=== PATIENT | female | born 1960 | race Caucasian/White ===

== ENCOUNTER 2017-04-10 08:49 | Emergency (ER) | payer SELFPAY ==
[~2017-04-10] VITALS: Ht 165.1 cm; Wt 70.0 kg
[~2017-04-10 08:49] MED LIST: ALBU6.7H INH; CARA1SUS3 PO; DOXY100T PO; GLUCTAB OR; LANTUSP SQ; METR-1 PO; PREV30CA36 PO
[2017-04-10 08:51] VITALS: BP 200/93; PULSE 75; RESP 15; TEMP 98.2; O2SAT 98
[2017-04-10] MEDS ORDERED: METF500T PO (10:02)
[2017-04-10] MEDS ORDERED: ALBU6.7H INH (10:03)
[2017-04-10 10:04] VITALS: BP 176/90; PULSE 73; RESP 22; O2SAT 99
--- NOTE | 2017-04-10 10:21 | PD ---
HPI Chief Complaint: Chest Pain Time Seen by Provider: 10:03 Travel History International Travel<30 days: No Contact w/Intl Traveler<30days: No Traveled to known affect area: No History of Present Illness HPI 57 years old female complains of chest pain and shortness of breath. Patient states that she has persistent shortness of breath for the past week. Patient states that she started having left arm pain aching pain for the past 3 days. Patient states that she had a few seconds of left-sided sharp shooting chest pain yesterday. Patient denies any chest pain today. Patient denies any coughing congestion fever chills. Patient states that the chest pain and shortness of breath is not associated with exertion. Patient states that she had unsteady gait yesterday but not today. Patient states that she has abdominal discomfort since yesterday also . Patient denies any nausea vomiting diarrhea. Patient has history of diabetes and hyperlipidemia. Patient denies history hypertension. Patient is a smoker. Patient has family history of heart disease. Patient states that she took aspirin yesterday and the day before that however not today. PFSH Past Medical History Asthma: Yes Anxiety: Yes Depression: Yes Cancer: No Cardiovascular Problems: No High Cholesterol: Yes Chemotherapy: No COPD: Yes Diabetes: Yes Patient Takes Glucophage: Yes (metformin) Diminished Hearing: No Glaucoma: No Genitourinary: No Hepatitis: No Hiatal Hernia: No Hypertension: No Implanted Vascular Access Dvce: No Neurologic: No Reproductive: No Respiratory: Yes (COPD) Immunizations Current: No Radiation Therapy: No Thyroid Disease: No ?: Not Menopausal: Yes Past Surgical History Abdominal Surgery: Yes (APPENDECTOMY) Appendectomy: Yes Cardiac Surgery: No Ear Surgery: No Endocrine Surgery: No Eye Surgery: No Genitourinary Surgery: No Gynecologic Surgery: Yes (HYSTERECTOMY 1988) Hysterectomy: Yes Oral Surgery: Yes (TONSILLECTOMY) Pacemaker: No Thoracic Surgery: No Tonsillectomy: Yes Other Surgery: Yes Social History Alcohol Use: No Tobacco Use: Yes (1 ppd) Substance Use: No Allergies-Medications (Allergen,Severity, Reaction): Coded Allergies: Benadryl (Verified Allergy, Severe, HIVES, 04/10/17) Sulfa (Verified Allergy, Severe, HIVES, 04/10/17) Celebrex (Verified Allergy, Mild, EDEMA, 04/10/17) Codeine (Verified Allergy, Mild, EDEMA, 04/10/17) Ketorolac (Verified Allergy, Mild, EDEMA, 04/10/17) Nonsteroidal Anti-Inflammatory Agts (Verified Allergy, Mild, RASH, 04/10/17 ) Vioxx (Verified Allergy, Mild, EDEMA, 04/10/17) Reported Meds & Prescriptions Reported Meds & Active Scripts Active Reported Proventil Hfa 6.7 GM Inh (Albuterol Sulfate) 90 Mcg/Act Aer 1 Puff INH Q4H PRN Metformin (Metformin HCl) 500 Mg Tab 500 Mg PO BIDPC With meals Review of Systems General / Constitutional: No: Fever Eyes: No: Visual changes HENT: No: Headaches Cardiovascular: Positive: Chest Pain or Discomfort Respiratory: Positive: Shortness of Breath Gastrointestinal: No: Abdominal Pain Genitourinary: No: Dysuria Musculoskeletal: No: Pain Skin: No Rash Neurologic: No: Weakness Psychiatric: No: Depression Endocrine: No: Polydipsia Hematologic/Lymphatic: No: Easy Bruising Physical Exam Narrative GENERAL: Well-nourished, well-developed patient. SKIN: Focused skin assessment warm/dry. HEAD: Normocephalic. EYES: No scleral icterus. No injection or drainage. NECK: Supple, trachea midline. No JVD or lymphadenopathy. CARDIOVASCULAR: Regular rate and rhythm without murmurs, gallops, or rubs. RESPIRATORY: Breath sounds equal bilaterally. No accessory muscle use. GASTROINTESTINAL: Abdomen soft, non-tender, nondistended. MUSCULOSKELETAL: No cyanosis, or edema. BACK: Nontender without obvious deformity. No CVA tenderness. Neurologic exam normal. Data Data Last Documented VS Vital Signs Date Time Temp Pulse Resp B/P Pulse Ox O2 Delivery O2 Flow Rate FiO2 04/10/17 10:04 73 22 176/90 99 Room Air 04/10/17 08:51 98.2 Orders Electrocardiogram (04/10/17 ) Complete Blood Count With Diff (04/10/17 10:14) Comprehensive Metabolic Panel (04/10/17 10:14) Creatine Kinase (Cpk) (04/10/17 10:14) Troponin I (04/10/17 10:14) Prothrombin Time / Inr (Pt) (04/10/17 10:14) Act Partial Throm Time (Ptt) (04/10/17 10:14) Lipase (04/10/17 10:14) Chest, Single Ap (04/10/17 10:14) Iv Access Insert/Monitor (04/10/17 10:14) Ecg Monitoring (04/10/17 10:14) Oximetry (04/10/17 10:14) Ct Abd/Pel W Iv Contrast(Rout) (04/10/17 12:44) Labs Laboratory Tests Test 04/10/17 04/10/17 10:20 11:15 White Blood Count 8.0 TH/MM3 Red Blood Count 4.98 MIL/MM3 Hemoglobin 15.0 GM/DL Hematocrit 44.1 % Mean Corpuscular Volume 88.5 FL Mean Corpuscular Hemoglobin 30.2 PG Mean Corpuscular Hemoglobin 34.1 % Concent Red Cell Distribution Width 13.6 % Platelet Count 167 TH/MM3 Mean Platelet Volume 11.2 FL Neutrophils (%) (Auto) 59.1 % Lymphocytes (%) (Auto) 34.4 % Monocytes (%) (Auto) 4.7 % Eosinophils (%) (Auto) 1.3 % Basophils (%) (Auto) 0.5 % Neutrophils # (Auto) 4.7 TH/MM3 Lymphocytes # (Auto) 2.8 TH/MM3 Monocytes # (Auto) 0.4 TH/MM3 Eosinophils # (Auto) 0.1 TH/MM3 Basophils # (Auto) 0.0 TH/MM3 CBC Comment DIFF FINAL Differential Comment Sodium Level 137 MEQ/L Potassium Level 4.6 MEQ/L Chloride Level 103 MEQ/L Carbon Dioxide Level 24.1 MEQ/L Anion Gap 10 MEQ/L Blood Urea Nitrogen 8 MG/DL Creatinine 0.84 MG/DL Estimat Glomerular Filtration 70 ML/MIN Rate Random Glucose 121 MG/DL Calcium Level 9.2 MG/DL Total Bilirubin 0.5 MG/DL Aspartate Amino Transf 38 U/L (AST/SGOT) Alanine Aminotransferase 35 U/L (ALT/SGPT) Alkaline Phosphatase 76 U/L Total Creatine Kinase 74 U/L Troponin I LESS THAN 0.02 NG/ML Total Protein 8.7 GM/DL Albumin 4.0 GM/DL Lipase 1286 U/L Prothrombin Time 10.6 SEC Prothromb Time International 1.0 RATIO Ratio Activated Partial 26.7 SEC Thromboplast Time MDM Medical Decision Making Medical Screen Exam Complete: Yes Emergency Medical Condition: Yes Interpretation(s) 10:20 AM. EKG shows sinus rhythm nonspecific ST-T wave change. 12:43 PM. Last Impressions Chest X-Ray 04/10/17 1014 Signed Impressions: Service Date/Time: Monday, April 10, 2017 10:42 - CONCLUSION: Normal examination. Lai Vazquez MD 12:43 PM. CBC within normal limit. CMP within normal limit. Cardiac enzymes are normal. Lipase 1286. Differential Diagnosis Differential diagnosis including angina, NJ, PE, pneumothorax, musculoskeletal. Narrative Course 57 years old female with left arm pain, shortness of breath and transient left chest pain. Patient wants to leave AMA. Refuses admission. One of possible consequences including NJ, acute abdomen, cholecystitis, bowel perforation, . Diagnosis Primary Impression: Acute pancreatitis Qualified Code: K85.90 - Acute pancreatitis without infection or necrosis, unspecified pancreatitis type Additional Impression: Chest pain Qualified Code: R07.9 - Chest pain, unspecified type Patient Instructions: General Instructions Additional Instructions: Patient wants to leave AMA. Med/Other Pt SpecificInfo: No Change to Meds Disposition: 07 AGAINST MEDICAL ADVICE Condition: Merlin Dumont MD Apr 10, 2017 10:20
[2017-04-10 10:49] LABS: AUTOMATED NEUTROPHIL # 4.7 TH/MM3 (1.8-7.7); BASOPHIL % 0.5 % (0.0-2.0); EOSINOPHIL # 0.1 TH/MM3 (0-0.4); EOSINOPHIL % 1.3 % (0.0-4.0); HEMATOCRIT 44.1 % (35.0-46.0); HEMO FLAGS DIFF FINAL; LYMPH % 34.4 % (9.0-44.0); LYMPHOCYTE # 2.8 TH/MM3 (1.0-4.8); MEAN CELL VOLUME 88.5 FL (80.0-100.0); MEAN CORPUSCULAR HEMOGLOBIN 30.2 PG (27.0-34.0); MEAN CORPUSCULAR HGB CONC 34.1 % (32.0-36.0); MONO % 4.7 % (0.0-8.0); NEUT % 59.1 % (16.0-70.0); PLATELET COUNT 167 TH/MM3 (150-450); RED BLOOD COUNT 4.98 MIL/MM3 (4.00-5.30); RED CELL DISTRIBUTION WIDTH 13.6 % (11.6-17.2)
--- NOTE | 2017-04-10 11:00 | RADRPT ---
EXAM DATE/TIME: 04/10/2017 10:42 [facility] COMPARISON: No previous studies available for comparison. INDICATIONS : Chest and left arm pain. MEDICAL HISTORY : Diabetes mellitus type II. Chronic obstructive pulmonary disease. SURGICAL HISTORY : None. ENCOUNTER: Initial ACUITY: 3 days PAIN SCORE: 6/10 LOCATION: Bilateral chest FINDINGS: A single view of the chest demonstrates the lungs to be symmetrically aerated without evidence of mas s, infiltrate or effusion. The cardiomediastinal contours are unremarkable. Osseous structures are intact. CONCLUSION: Normal examination. Lai Vazquez MD on April 10, 2017 at 10:58 Board Certified Radiologist. This report was verified electronically.
[2017-04-10 11:05] LABS: ALT (GPT) 35 U/L (10-53); ANION GAP 10 MEQ/L (5-15); AST (GOT) 38 U/L (15-37); BICARBONATE 24.1 MEQ/L (21.0-32.0); BLOOD UREA NITROGEN 8 MG/DL (7-18); CHLORIDE 103 MEQ/L (98-107); GLOMERULAR FILTRATION RATE 70 ML/MIN (>89); POTASSIUM 4.6 MEQ/L (3.5-5.1); SODIUM (NA) 137 MEQ/L (136-145)
[2017-04-10 11:07] LABS: ALKALINE PHOSPHATASE 76 U/L (45-117); CREATINE KINASE 74 U/L (26-192); TOTAL BILIRUBIN ADULT 0.5 MG/DL (0.2-1.0)
[2017-04-10 11:34] LABS: APTT (PATIENT) 26.7 SEC (24.3-30.1); PROTHROMBIN TIME - PATIENT 10.6 SEC (9.8-11.6)
--- NOTE | 2017-04-10 19:27 | EKG ---
Date Performed: 04/10/2017 Time Performed: 09:20:52 PTAGE: 57 years EKG: Sinus rhythm NORMAL ECG NO PREVIOUS TRACING DOCTOR: Isabel Hollins Interpretating Date/Time 04/10/2017 19:24:34
== END 2017-04-10 13:07 | disposition left against medical advice (07) ==
LOC: NEPE 08:49
DX: K85.90 Acute pancreatitis without necrosis or infection, unspecified (principal); R07.9 Chest pain, unspecified; R06.02 Shortness of breath; M79.602 Pain in left arm; E11.9 Type 2 diabetes mellitus without complications; E78.5 Hyperlipidemia, unspecified; F17.200 Nicotine dependence, unspecified, uncomplicated; Z79.84 Long term (current) use of oral hypoglycemic drugs; Z87.09 Personal history of other diseases of the respiratory system; Z86.59 Personal history of other mental and behavioral disorders; Z53.20 Procedure and treatment not carried out because of patient's decision for unspecified reasons
CPT/HCPCS: 71010; 80053; 82550; 83690; 84484; 85025; 85610; 85730; 93005; 99285

== ENCOUNTER 2017-04-14 17:51 | Emergency (ER) | payer OTHER ==
[~2017-04-14] VITALS: Ht 165.1 cm; Wt 63.5 kg
[~2017-04-14 17:51] MED LIST changes: -CARA1SUS3 PO; -DOXY100T PO; -GLUCTAB OR; -LANTUSP SQ; +METF500T PO; -METR-1 PO; -PREV30CA36 PO
[2017-04-14 17:52] VITALS: BP 138/90; PULSE 98; RESP 16; TEMP 98.3; O2SAT 98
[2017-04-14 19:40] VITALS: BP 129/88; PULSE 80; RESP 18; O2SAT 97
[2017-04-14] MEDS ORDERED: SODIUM CHLOR 0.9% 1000 ML INJ 1,000 ML IV SCH (19:49)
--- NOTE | 2017-04-14 19:57 | PD ---
HPI Chief Complaint: Abdominal Pain Time Seen by Provider: 19:38 Travel History International Travel<30 days: No Contact w/Intl Traveler<30days: No Traveled to known affect area: No History of Present Illness HPI Patient is a 57-year-old female who presents to emergency room for admission and treatment of pancreatitis. Patient reports that she began to have epigastric pain with nausea and vomiting about one month ago. She was seen in the emergency room on April 10, 2017 for similar symptoms and was diagnosed with pancreatitis. Patient reports that she was encouraged to stay for admission to the hospital, reports that she was not ready to be admitted and tried to go home and eat a bland diet. Patient reports that for the past few days, she has extreme pain with eating and drinking. Patient reports that she is now ready to be admitted to the hospital for treatment of pancreatitis. Patient reports that this is the first time she has ever had pancreatitis in her life, patient reports that she is concerned as her brother passed from pancreatitis. Patient denies use of alcohol or drugs. Denies chest pain/sob. Denies fever/chills.. Reports that she is a diabetic on metformin. PFSH Past Medical History Asthma: Yes Anxiety: Yes Depression: Yes Cancer: No Cardiovascular Problems: No High Cholesterol: Yes Chemotherapy: No COPD: Yes Diabetes: Yes Patient Takes Glucophage: Yes (earlier today) Diminished Hearing: No Glaucoma: No Genitourinary: No Hepatitis: No Hiatal Hernia: No Hypertension: No Implanted Vascular Access Dvce: No Medical other: No Neurologic: No Reproductive: No Respiratory: Yes (COPD) Immunizations Current: No Radiation Therapy: No Thyroid Disease: No Menopausal: Yes Past Surgical History Abdominal Surgery: Yes (APPENDECTOMY) Appendectomy: Yes Cardiac Surgery: No Ear Surgery: No Endocrine Surgery: No Eye Surgery: No Genitourinary Surgery: No Gynecologic Surgery: Yes (HYSTERECTOMY 1988) Hysterectomy: Yes Neurologic Surgery: No Oral Surgery: Yes (TONSILLECTOMY) Pacemaker: No Thoracic Surgery: No Tonsillectomy: Yes Other Surgery: Yes Social History Alcohol Use: No Tobacco Use: Yes (1 ppd) Substance Use: No Allergies-Medications (Allergen,Severity, Reaction): Coded Allergies: Benadryl (Verified Allergy, Severe, HIVES, 04/10/17) Sulfa (Verified Allergy, Severe, HIVES, 04/10/17) Celebrex (Verified Allergy, Mild, EDEMA, 04/10/17) Codeine (Verified Allergy, Mild, EDEMA, 04/10/17) Ketorolac (Verified Allergy, Mild, EDEMA, 04/10/17) Nonsteroidal Anti-Inflammatory Agts (Verified Allergy, Mild, RASH, 04/10/17 ) Vioxx (Verified Allergy, Mild, EDEMA, 04/10/17) Reported Meds & Prescriptions Reported Meds & Active Scripts Active Reported Proventil Hfa 6.7 GM Inh (Albuterol Sulfate) 90 Mcg/Act Aer 1 Puff INH Q4H PRN Metformin (Metformin HCl) 500 Mg Tab 500 Mg PO BIDPC With meals Review of Systems General / Constitutional: No: Fever Eyes: No: Visual changes HENT: No: Headaches Cardiovascular: No: Chest Pain or Discomfort Respiratory: No: Shortness of Breath Gastrointestinal: Positive: Nausea, Vomiting, Abdominal Pain Genitourinary: No: Dysuria Musculoskeletal: No: Pain Skin: No Rash Neurologic: No: Weakness Psychiatric: No: Depression Endocrine: No: Polydipsia Hematologic/Lymphatic: No: Easy Bruising Physical Exam Narrative GENERAL: Moderate distress SKIN: Focused skin assessment warm/dry. HEAD: Atraumatic. Normocephalic. EYES: Pupils equal and round. No scleral icterus. No injection or drainage. ENT: No nasal bleeding or discharge. Mucous membranes pink and moist. NECK: Trachea midline. No JVD. CARDIOVASCULAR: Regular rate and rhythm. No murmur appreciated. RESPIRATORY: No accessory muscle use. Clear to auscultation. Breath sounds equal bilaterally. GASTROINTESTINAL: Abdomen soft, patient with tenderness to her epigastrium, nondistended. Hepatic and splenic margins not palpable. MUSCULOSKELETAL: No obvious deformities. No clubbing. No cyanosis. No edema. NEUROLOGICAL: Awake and alert. No obvious cranial nerve deficits. Motor grossly within normal limits. Normal speech. PSYCHIATRIC: Appropriate mood and affect; insight and judgment normal. Data Data Last Documented VS Vital Signs Date Time Temp Pulse Resp B/P Pulse Ox O2 Delivery O2 Flow Rate FiO2 04/14/17 19:40 80 18 129/88 97 Room Air 04/14/17 17:52 98.3 Orders Complete Blood Count With Diff (04/14/17 19:49) Comprehensive Metabolic Panel (04/14/17 19:49) Lipase (04/14/17 19:49) Prothrombin Time / Inr (Pt) (04/14/17 19:49) Act Partial Throm Time (Ptt) (04/14/17 19:49) Urinalysis - C+S If Indicated (04/14/17 19:49) Ct Abd/Pel W Iv Contrast(Rout) (04/14/17 19:49) Iv Access Insert/Monitor (04/14/17 19:49) Ecg Monitoring (04/14/17 19:49) Oximetry (04/14/17 19:49) Ondansetron Inj (Zofran Inj) (04/14/17 20:00) Sodium Chlor 0.9% 1000 Ml Inj (Ns 1000 M (04/14/17 19:49) Sodium Chloride 0.9% Flush (Ns Flush) (04/14/17 20:00) Electrocardiogram (04/14/17 19:49) Iohexol 350 Inj (Omnipaque 350 Inj) (04/14/17 22:32) Labs Laboratory Tests Test 04/14/17 04/14/17 19:49 20:50 Urine Color LIGHT-YELLOW Urine Turbidity CLEAR Urine pH 5.5 Urine Specific [place] 1.002 Urine Protein NEG mg/dL Urine Glucose (UA) NEG mg/dL Urine Ketones NEG mg/dL Urine Occult Blood NEG Urine Nitrite NEG Urine Bilirubin NEG Urine Urobilinogen LESS THAN 2.0 MG/DL Urine Leukocyte Esterase NEG Urine RBC LESS THAN 1 /hpf Urine WBC LESS THAN 1 /hpf Urine Squamous Epithelial <1 /hpf Cells Microscopic Urinalysis Comment CULT NOT INDICATED White Blood Count 7.9 TH/MM3 Red Blood Count 4.61 MIL/MM3 Hemoglobin 13.8 GM/DL Hematocrit 41.1 % Mean Corpuscular Volume 89.2 FL Mean Corpuscular Hemoglobin 30.0 PG Mean Corpuscular Hemoglobin 33.7 % Concent Red Cell Distribution Width 13.3 % Platelet Count 149 TH/MM3 Mean Platelet Volume 9.7 FL Neutrophils (%) (Auto) 45.8 % Lymphocytes (%) (Auto) 46.4 % Monocytes (%) (Auto) 5.8 % Eosinophils (%) (Auto) 1.3 % Basophils (%) (Auto) 0.7 % Neutrophils # (Auto) 3.6 TH/MM3 Lymphocytes # (Auto) 3.7 TH/MM3 Monocytes # (Auto) 0.5 TH/MM3 Eosinophils # (Auto) 0.1 TH/MM3 Basophils # (Auto) 0.1 TH/MM3 CBC Comment DIFF FINAL Differential Comment Prothrombin Time 10.8 SEC Prothromb Time International 1.0 RATIO Ratio Activated Partial 27.8 SEC Thromboplast Time Sodium Level 135 MEQ/L Potassium Level 4.0 MEQ/L Chloride Level 102 MEQ/L Carbon Dioxide Level 27.8 MEQ/L Anion Gap 5 MEQ/L Blood Urea Nitrogen 9 MG/DL Creatinine 0.74 MG/DL Estimat Glomerular Filtration 81 ML/MIN Rate Random Glucose 74 MG/DL Calcium Level 9.5 MG/DL Total Bilirubin 0.6 MG/DL Aspartate Amino Transf 25 U/L (AST/SGOT) Alanine Aminotransferase 31 U/L (ALT/SGPT) Alkaline Phosphatase 74 U/L Total Protein 8.3 GM/DL Albumin 4.2 GM/DL Lipase 251 U/L [facility] Medical Decision Making Medical Screen Exam Complete: Yes Emergency Medical Condition: Yes Interpretation(s) EKG at 2348: NSR at 70bpm,qt/qtc: 411/432, no acute st or t wave changes, non acute ekg Vital Signs Date Time Temp Pulse Resp B/P Pulse Ox O2 Delivery O2 Flow Rate FiO2 04/14/17 19:40 80 18 129/88 97 Room Air 04/14/17 17:52 98.3 98 16 138/90 98 Differential Diagnosis Differential includes pancreatitis, gastroenteritis, electrolyte abnormality Narrative Course 57-year-old female who presents to emergency room for admission for pancreatitis. She was seen on April 10, 2017 and had a workup which showed a lipase of 1,286. Patient left AMA from the hospital as she did not want to be admitted for pancreatitis at that time, reports that she cannot tolerate this pain and has not been able to eat or drink without having severe pain. She is here for admission. Plan to repeat labs including lipase. Ct ordered to evaluate pancreas Vital Signs Date Time Temp Pulse Resp B/P Pulse Ox O2 Delivery O2 Flow Rate FiO2 04/14/17 19:40 80 18 129/88 97 Room Air 04/14/17 17:52 98.3 98 16 138/90 98 Laboratory Tests Test 04/14/17 04/14/17 19:49 20:50 Urine Color LIGHT-YELLOW (YELLW/STRAW) Urine Turbidity CLEAR (CLEAR) Urine pH 5.5 (5.0-8.5) Urine Specific [place] 1.002 (1.002-1.035) Urine Protein NEG mg/dL (NEG-TRACE) Urine Glucose (UA) NEG mg/dL (NEG) Urine Ketones NEG mg/dL (NEG) Urine Occult Blood NEG (NEG) Urine Nitrite NEG (NEG) Urine Bilirubin NEG (NEG) Urine Urobilinogen LESS THAN 2.0 MG/DL (LESS THAN 2.0) Urine Leukocyte Esterase NEG (NEG) Urine RBC LESS THAN 1 /hpf (0-3) Urine WBC LESS THAN 1 /hpf (0-5) Urine Squamous Epithelial <1 /hpf (0-5) Cells Microscopic Urinalysis Comment CULT NOT INDICATED White Blood Count 7.9 TH/MM3 (4.0-11.0) Red Blood Count 4.61 MIL/MM3 (4.00-5.30) Hemoglobin 13.8 GM/DL (11.6-15.3) Hematocrit 41.1 % (35.0-46.0) Mean Corpuscular Volume 89.2 FL (80.0-100.0) Mean Corpuscular Hemoglobin 30.0 PG (27.0-34.0) Mean Corpuscular Hemoglobin 33.7 % Concent (32.0-36.0) Red Cell Distribution Width 13.3 % (11.6-17.2) Platelet Count 149 TH/MM3 (150-450) Mean Platelet Volume 9.7 FL (7.0-11.0) Neutrophils (%) (Auto) 45.8 % (16.0-70.0) Lymphocytes (%) (Auto) 46.4 % (9.0-44.0) Monocytes (%) (Auto) 5.8 % (0.0-8.0) Eosinophils (%) (Auto) 1.3 % (0.0-4.0) Basophils (%) (Auto) 0.7 % (0.0-2.0) Neutrophils # (Auto) 3.6 TH/MM3 (1.8-7.7) Lymphocytes # (Auto) 3.7 TH/MM3 (1.0-4.8) Monocytes # (Auto) 0.5 TH/MM3 (0-0.9) Eosinophils # (Auto) 0.1 TH/MM3 (0-0.4) Basophils # (Auto) 0.1 TH/MM3 (0-0.2) CBC Comment DIFF FINAL Differential Comment Prothrombin Time 10.8 SEC (9.8-11.6) Prothromb Time International 1.0 RATIO Ratio Activated Partial 27.8 SEC Thromboplast Time (24.3-30.1) Sodium Level 135 MEQ/L (136-145) Potassium Level 4.0 MEQ/L (3.5-5.1) Chloride Level 102 MEQ/L (98-107) Carbon Dioxide Level 27.8 MEQ/L (21.0-32.0) Anion Gap 5 MEQ/L (5-15) Blood Urea Nitrogen 9 MG/DL (7-18) Creatinine 0.74 MG/DL (0.50-1.00) Estimat Glomerular Filtration 81 ML/MIN (>89) Rate Random Glucose 74 MG/DL (74-106) Calcium Level 9.5 MG/DL (8.5-10.1) Total Bilirubin 0.6 MG/DL (0.2-1.0) Aspartate Amino Transf 25 U/L (15-37) (AST/SGOT) Alanine Aminotransferase 31 U/L (10-53) (ALT/SGPT) Alkaline Phosphatase 74 U/L (45-117) Total Protein 8.3 GM/DL (6.4-8.2) Albumin 4.2 GM/DL (3.4-5.0) Lipase 251 U/L (73-393) Last Impressions Abdomen/Pelvis CT 04/14/171948 Signed Impressions: Service Date/Time: Friday, April 14, 2017 22:32 - CONCLUSION: 1. 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 2. Mild atherosclerosis. 3. Diverticulosis. 4. Right adrenal nodule. 5. Small hiatal hernia. Atilio Woods MD All labs and all studies reviewed in detail. CBC: platelets 149, hemoglobin 13.8, hematocrit 41.4, platelets 149 BMP: Sodium 135, potassium 4.0, BUN 9, creatinine 0.74, glucose 74 Lipase 251 which is improved from lipase of 1286 on 04/10/17. UA with no signs of infection CT Last Impressions Abdomen/Pelvis CT 04/14/171948 Signed Impressions: Service Date/Time: Friday, April 14, 2017 22:32 - CONCLUSION: 1. 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 2. Mild atherosclerosis. 3. Diverticulosis. 4. Right adrenal nodule. 5. Small hiatal hernia. Atilio Woods MD Patient re-evaluated. Patient feeling much better. Abdomen is soft, nt/nd, no peritoneal signs. There are no acute findings on CT. All incidental findings reviewed with patient in detail. A copy of patient's CT report was given to her as she will need to follow-up with all incidental findings. Signs and symptoms of when to return to the emergency room reviewed patient in detail. Patient thankful for care Diagnosis Primary Impression: Abdominal pain Qualified Code: R10.13 - Epigastric pain Additional Impressions: Hepatic steatosis Diverticulosis Qualified Code: K57.90 - Diverticulosis of intestine without bleeding, unspecified intestinal tract location Adrenal nodule Hiatal hernia Thrombocytopenia Referrals: Jenni Carlin MD Patient Instructions: General Instructions Departure Forms: Tests/Procedures, Work Release Enter return to work date: Apr 17, 2017 Additional Instructions: Please provide patient with a copy of her lab work and studies at discharge Return to emergency room as needed Return to the emergency room symptoms return or persist Please follow-up with your primary care doctor Please follow-up with a spinner cap frame Bring your laboratory studies to your physicians appointment Please hold metformin for 48 hours as you have received IV dye today Disposition: 01 DISCHARGE HOME Condition: Stable Shanta Mcpherson DO Apr 14, 2017 19:57
[2017-04-14] MEDS ORDERED: SODIUM CHLORIDE 0.9% FLUSH 10 ML FLUSH IV FLUSH PRN (20:00)
[2017-04-14] MEDS ORDERED: ONDANSETRON HCL 4 MG/2 ML VIAL IVP ONE (20:00)
[2017-04-14 21:43] LABS: AUTOMATED NEUTROPHIL # 3.6 TH/MM3 (1.8-7.7); BASOPHIL # 0.1 TH/MM3 (0-0.2); BASOPHIL % 0.7 % (0.0-2.0); EOSINOPHIL # 0.1 TH/MM3 (0-0.4); EOSINOPHIL % 1.3 % (0.0-4.0); HEMATOCRIT 41.1 % (35.0-46.0); HEMO FLAGS DIFF FINAL; LYMPH % 46.4 % (9.0-44.0); LYMPHOCYTE # 3.7 TH/MM3 (1.0-4.8); MEAN CELL VOLUME 89.2 FL (80.0-100.0); MEAN CORPUSCULAR HGB CONC 33.7 % (32.0-36.0); MONO % 5.8 % (0.0-8.0); NEUT % 45.8 % (16.0-70.0); PLATELET COUNT 149 TH/MM3 (150-450); RED BLOOD COUNT 4.61 MIL/MM3 (4.00-5.30); RED CELL DISTRIBUTION WIDTH 13.3 % (11.6-17.2); WHITE BLOOD COUNT 7.9 TH/MM3 (4.0-11.0)
[2017-04-14 21:53] LABS: BLOOD, URINE NEG (NEG); GLUCOSE,URINE NEG (NEG); KETONE, URINE NEG (NEG); NITRITE,URINE NEG (NEG); PH, URINE 5.5 (5.0-8.5); SQUAMOUS EPITHELIAL CELL URINE <1 /hpf (0-5); URINE COLOR LIGHT-YELLOW (YELLW/STRAW)
[2017-04-14 21:55] LABS: COMMENT (UR) CULT NOT INDICATED; CULTURE IF INDICATED CULT NOT INDICATED
[2017-04-14 22:01] LABS: APTT (PATIENT) 27.8 SEC (24.3-30.1); PROTHROMBIN TIME - PATIENT 10.8 SEC (9.8-11.6)
[2017-04-14 22:07] LABS: ALT (GPT) 31 U/L (10-53); ANION GAP 5 MEQ/L (5-15); AST (GOT) 25 U/L (15-37); BICARBONATE 27.8 MEQ/L (21.0-32.0); BLOOD UREA NITROGEN 9 MG/DL (7-18); CHLORIDE 102 MEQ/L (98-107); GLOMERULAR FILTRATION RATE 81 ML/MIN (>89); SODIUM (NA) 135 MEQ/L (136-145)
[2017-04-14 22:10] LABS: ALKALINE PHOSPHATASE 74 U/L (45-117); TOTAL BILIRUBIN ADULT 0.6 MG/DL (0.2-1.0)
[2017-04-14] MEDS ORDERED: IOHEXOL 350 MG/ML 10 ML VIAL (for RAD DIAG) IV ONE (22:32)
--- NOTE | 2017-04-14 22:52 | RADRPT ---
EXAM DATE/TIME: 04/14/2017 22:32 [facility] COMPARISON: CT ABDOMEN & PELVIS W CONTRAST, March 01, 2011, 15:49. INDICATIONS : Right upper quadrant pain X 2 weeks. IV CONTRAST: 97 cc Omnipaque 350 (iohexol) IV ORAL CONTRAST: No oral contrast ingested. RADIATION DOSE: 7.48 CTDIvol (mGy) MEDICAL HISTORY : Pancreatitis. Hepatitis C. Diabetes mellitus type 2. SURGICAL HISTORY : Appendectomy. ENCOUNTER: Subsequent ACUITY: 2 weeks PAIN SCALE: 6/10 LOCATION: Right upper quadrant abdomen TECHNIQUE: Volumetric scanning of the abdomen and pelvis was performed. Using automated exposure control and ad justment of the mA and/or kV according to patient size, radiation dose was kept as low as reasonably achievable to obtain optimal diagnostic quality images. DICOM format image data is available electro nically for review and comparison. FINDINGS: Lung bases are clear. Degenerative changes of the spine are noted. No pleural or pericardial effusion s are identified. There is a hiatal hernia. Mild hepatic steatosis. Gallbladder, spleen, pancreas, le ft adrenal gland, bilateral kidneys are normal in appearance. There is a nodule of the right adrenal gland measuring 2.1 cm. No inflammatory changes are identified in the abdomen or pelvis. Urinary blad ellie is unremarkable. There is diverticulosis of the sigmoid colon without evidence of diverticulitis. The patient is status post appendectomy. There is recanalization of the umbilical vein with varicosi ty seen within the subcutaneous tissues of the anterior abdominal wall. Atherosclerosis is noted. CONCLUSION: 1. 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 2. Mild atherosclerosis. 3. Diverticulosis. 4. Right adrenal nodule. 5. Small hiatal hernia. Atilio Woods MD on April 14, 2017 at 22:49 Board Certified Radiologist. This report was verified electronically.
--- NOTE | 2017-04-15 12:30 | EKG ---
Date Performed: 04/14/2017 Time Performed: 23:48:47 PTAGE: 57 years EKG: Sinus rhythm Since previous tracing, no significant change noted NORMAL ECG PREVIOUS TRACING : 04/10/2017 09.20 DOCTOR: Abdon Mckenna Interpretating Date/Time 04/15/2017 12:26:15
== END 2017-04-15 00:54 | disposition home or self-care (01) ==
LOC: NEPC 17:51
DX: K76.0 Fatty (change of) liver, not elsewhere classified (principal); K57.90 Diverticulosis of intestine, part unspecified, without perforation or abscess without bleeding; E27.8 Other specified disorders of adrenal gland; K44.9 Diaphragmatic hernia without obstruction or gangrene; D69.6 Thrombocytopenia, unspecified; B19.20 Unspecified viral hepatitis C without hepatic coma; E11.9 Type 2 diabetes mellitus without complications; E78.00 Pure hypercholesterolemia, unspecified; J44.9 Chronic obstructive pulmonary disease, unspecified; K85.90 Acute pancreatitis without necrosis or infection, unspecified
CPT/HCPCS: 74177; 80053; 81001; 83690; 85025; 85610; 85730; 93005; 96374; 99285; J2405; J7030; Q9967